=== PATIENT | female | born 1940 | race Caucasian/White ===

== ENCOUNTER → 2017-01-18 | Outpatient (CLI) | payer MEDICARE, OTHER ==
[~2017-01-18] MED LIST: ASA325 MG PO; FLEXERIL DPS5 MG PO; HYDROCODONE 5MG/5 MG PO; MULTI VITAMIN1 EACH PO; NORVASC DPS10 MG PO; SUPER B COMPLE150 MG PO; TIMOPTIC 0.5% DP5 ML OU; ZOCOR DPS20 MG PO
== END | disposition home or self-care (01) ==
LOC: RAD.S 14:25
DX: Z12.31 Encounter for screening mammogram for malignant neoplasm of breast (principal); R92.1 Mammographic calcification found on diagnostic imaging of breast; M85.89 Other specified disorders of bone density and structure, multiple sites